=== PATIENT | male | born 1955 | race Caucasian/White ===

== ENCOUNTER 2020-09-20 12:53 | Emergency (ER) | payer MEDICAID ==
[~2020-09-20] VITALS: Ht 203.2 cm; Wt 112.2 kg
[~2020-09-20 12:53] MED LIST: NO HOME MEDS
[2020-09-20] MEDS ORDERED: bacitracin 15gm ointment TP ONE (14:40)
[2020-09-20] MEDS ORDERED: vancomycin/NS 1 GM ADD-VANTAGE 250 ML IV ONE (14:40)
[2020-09-20] MEDS ORDERED: CefTRIAXone 2gm/D5W 50ml BAG 50 ML IV ONE (14:40)
[2020-09-20 15:27] LABS: BASOPHILS # (AUTO) 0.1 X10'3 (0-0.2); BASOPHILS % (AUTO) 1.5 % (0-1); EOSINOPHILS # (AUTO) 0.7 X10'3 (0-0.9); EOSINOPHILS % (AUTO) 7.9 % (0-6); HEMATOCRIT 39.1 % (42.0-52.0); LYMPHOCYTES # (AUTO) 2.2 X10'3 (1.1-4.8); LYMPHOCYTES % (AUTO) 25.7 % (21-51); MEAN CORPUSCULAR HEMOGLOBIN 29.4 PG (27.0-31.0); MEAN CORPUSCULAR HGB CONC 33.2 g/dL (33.0-36.5); MEAN CORPUSCULAR VOLUME 88.5 FL (78-98); MEAN PLATELET VOLUME 8.9 FL (7.4-10.4); MONOCYTES # (AUTO) 1.2 X10'3 (0-0.9); NEUTROPHILS # (AUTO) 4.4 X10'3 (1.8-7.7); NEUTROPHILS % (AUTO) 50.9 % (42-75); PLATELET COUNT 503 X10'3 (140-440); RED BLOOD COUNT 4.42 X10'6 (4.70-6.10); RED CELL DISTRIBUTION WIDTH 14.3 % (11.5-14.5); WHITE BLOOD COUNT 8.6 X10'3 (4.5-11.0)
[2020-09-20 15:41] LABS: ALANINE AMINOTRANSFERASE 27 U/L (12-78); ALBUMIN 3.3 G/DL (3.4-5.0); ALBUMIN/GLOBULIN RATIO 0.8 (1.1-1.5); ALKALINE PHOSPHATASE 96 IU/L (46-116); ANION GAP 6 (8-16); ASPARTATE AMINO TRANSFERASE 15 U/L (10-37); BILIRUBIN,TOTAL 0.2 MG/DL (0.1-1.0); BLOOD UREA NITROGEN 22 MG/DL (7-18); BUN/CREATININE RATIO 15.9 (5.4-32.0); CALCIUM 8.7 MG/DL (8.5-10.1); CHLORIDE 106 MMOL/L (99-107); CREATININE 1.38 MG/DL (0.60-1.10); GLUCOSE 86 MG/DL (70-104); MAGNESIUM 2.1 MG/DL (1.5-2.4); SODIUM 142 MMOL/L (135-145); TOTAL CARBON DIOXIDE 30.4 MMOL/L (24-32); TOTAL PROTEIN 7.4 G/DL (6.4-8.2); eGFR 52 ML/MIN
[2020-09-20 15:48] VITALS: BP 162/110
[2020-09-20] MEDS ORDERED: CEPH-585 PO ×2 (16:48→17:16)
[2020-09-20] MEDS ORDERED: SULF1TAB49 PO ×2 (16:48→17:16)
== END 2020-09-20 18:16 | disposition home or self-care (01) ==
LOC: ER 12:54
DX: L03.031 Cellulitis of right toe (principal); M86.9 Osteomyelitis, unspecified; N28.9 Disorder of kidney and ureter, unspecified; F15.90 Other stimulant use, unspecified, uncomplicated; Z79.2 Long term (current) use of antibiotics; Z79.899 Other long term (current) drug therapy; Z72.89 Other problems related to lifestyle; Z87.81 Personal history of (healed) traumatic fracture
CPT/HCPCS: 36415; 73660; 80053; 83605; 83735; 84145; 85025; 87040; 96365; 96366; 96367; 99284; J0696; J3370; 96368

== ENCOUNTER 2022-07-15 16:11 | Inpatient (IN) | payer MEDICAID ==
[~2022-07-15] VITALS: Ht 188 cm; Wt 104.0 kg
[2022-07-15] MEDS ORDERED: magnesium 2GM in 50ml NS 50 ML IV ONE (16:40)
[2022-07-15] MEDS ORDERED: diltiazem 5mg/ml 5ml inj. IV ONE ×2 (16:40→17:36)
[2022-07-15 17:18] LABS: BASOPHILS # (AUTO) 0.1 X10'3 (0-0.2); EOSINOPHILS # (AUTO) 0.3 X10'3 (0-0.9); EOSINOPHILS % (AUTO) 3.3 % (0-6); HEMATOCRIT 40.1 % (42.0-52.0); HEMOGLOBIN 13.1 g/dl (14.0-17.9); LYMPHOCYTES # (AUTO) 1.9 X10'3 (1.1-4.8); LYMPHOCYTES % (AUTO) 18.7 % (21-51); MEAN CORPUSCULAR HEMOGLOBIN 29.8 PG (27.0-31.0); MEAN CORPUSCULAR HGB CONC 32.6 g/dL (33.0-36.5); MEAN CORPUSCULAR VOLUME 91.4 FL (78-98); MEAN PLATELET VOLUME 9.3 FL (7.4-10.4); MONOCYTES # (AUTO) 1.1 X10'3 (0-0.9); MONOCYTES % (AUTO) 10.5 % (2-12); NEUTROPHILS # (AUTO) 6.7 X10'3 (1.8-7.7); NEUTROPHILS % (AUTO) 66.5 % (42-75); PLATELET COUNT 348 X10'3 (140-440); RED BLOOD COUNT 4.38 X10'6 (4.70-6.10); RED CELL DISTRIBUTION WIDTH 15.2 % (11.5-14.5)
[2022-07-15] MEDS ORDERED: diltiazem 30mg tablet PO ONE (17:35)
[2022-07-15] MEDS ORDERED: furosemide 10 MG/1 ML 10ml inj IV ONE (17:35)
[2022-07-15 17:47] LABS: ALANINE AMINOTRANSFERASE 53 U/L (12-78); ALBUMIN 3.4 G/DL (3.4-5.0); ALBUMIN/GLOBULIN RATIO 0.9 (1.1-1.5); ALKALINE PHOSPHATASE 93 IU/L (46-116); ANION GAP 9 (8-16); ASPARTATE AMINO TRANSFERASE 23 U/L (10-37); BILIRUBIN,TOTAL 0.5 MG/DL (0.1-1.0); BLOOD UREA NITROGEN 25 MG/DL (7-18); BUN/CREATININE RATIO 16.1 (5.4-32.0); CALCIUM 8.8 MG/DL (8.5-10.1); CHLORIDE 107 MMOL/L (99-107); CREATININE 1.55 MG/DL (0.60-1.10); GLUCOSE 112 MG/DL (70-104); MAGNESIUM 1.9 MG/DL (1.5-2.4); POTASSIUM 4.3 MMOL/L (3.5-5.1); SODIUM 141 MMOL/L (135-145); TOTAL CARBON DIOXIDE 24.6 MMOL/L (24-32); eGFR 45 ML/MIN
[2022-07-15] MEDS ORDERED: enoxaparin 100mg/ml syringe SUBCUT ONE (17:55)
[2022-07-15] MEDS ORDERED: nitroGLYCERIN 0.4mg/hour patch TD ONE (17:55)
[2022-07-15] MEDS ORDERED: acetaminophen 325mg tablet PO PRN (18:00)
[2022-07-15] MEDS ORDERED: magnesium hydroxide 30ml (MOM) UD suspension PO PRN (18:00)
[2022-07-15] MEDS ORDERED: potassium Cl 40MEQ/1/2NS 520ml 520 ML IV PRN (18:00)
[2022-07-15] MEDS ORDERED: CefTRIAXone 2gm/D5W 50ml BAG 50 ML IV ONE (18:00)
[2022-07-15] MEDS ORDERED: magnesium Cl slow-release 64mg tablet PO PRN (18:00)
[2022-07-15] MEDS ORDERED: mag hydrox/Alum hydrox/simeth 30ml oral suspension PO PRN (18:00)
[2022-07-15] MEDS ORDERED: ondansetron/PF 4mg/2ml inj IV PRN (18:00)
[2022-07-15] MEDS ORDERED: magnesium 4gm in 100ml NS 100 ML IV PRN (18:00)
[2022-07-15] MEDS ORDERED: PERFLUTREN PROTEIN-A MICROSPHR (Optison) 0.22 MG/ML 3ML VIAL IV ONE (18:00)
[2022-07-15] MEDS ORDERED: potassium Cl 20 mEq SR tablet PO PRN ×2 (18:00)
[2022-07-15] MEDS ORDERED: cloNIDine 0.1 mg tablet PO ONE (18:30)
[2022-07-15 19:18] LABS: URINE AMPHETAMINE SCREEN POSITIVE (Neg); URINE BARBITUATE SCREEN NEGATIVE (Neg); URINE BENZODIAZEPINES SCREEN NEGATIVE (Neg); URINE CANNABINOID SCREEN NEGATIVE (Neg); URINE COCAINE SCREEN NEGATIVE (Neg); URINE METHADONE SCREEN NEGATIVE (Neg); URINE OPIATE SCREEN NEGATIVE (Neg); URINE PHENCYCLIDINE SCREEN NEGATIVE (Neg)
[2022-07-15] MEDS: docusate sod 100mg capsule PO SCH (20:00)
[2022-07-15] MEDS: carVEDilol 3.125mg tablet PO SCH (21:00)
[2022-07-16 07:16] LABS: BASOPHILS # (AUTO) 0.2 X10'3 (0-0.2); BASOPHILS % (AUTO) 1.5 % (0-1); EOSINOPHILS # (AUTO) 0.5 X10'3 (0-0.9); HEMATOCRIT 41.5 % (42.0-52.0); HEMOGLOBIN 13.1 g/dl (14.0-17.9); LYMPHOCYTES # (AUTO) 2.2 X10'3 (1.1-4.8); LYMPHOCYTES % (AUTO) 21.2 % (21-51); MEAN CORPUSCULAR HEMOGLOBIN 29.7 PG (27.0-31.0); MEAN CORPUSCULAR HGB CONC 31.5 g/dL (33.0-36.5); MEAN CORPUSCULAR VOLUME 94.2 FL (78-98); MEAN PLATELET VOLUME 9.1 FL (7.4-10.4); MONOCYTES # (AUTO) 1.2 X10'3 (0-0.9); MONOCYTES % (AUTO) 11.4 % (2-12); NEUTROPHILS # (AUTO) 6.4 X10'3 (1.8-7.7); NEUTROPHILS % (AUTO) 60.9 % (42-75); PLATELET COUNT 307 X10'3 (140-440); RED BLOOD COUNT 4.41 X10'6 (4.70-6.10); RED CELL DISTRIBUTION WIDTH 15.7 % (11.5-14.5); WHITE BLOOD COUNT 10.6 X10'3 (4.5-11.0)
[2022-07-16] MEDS: furosemide 10 MG/1 ML 10ml inj IV SCH (07:33)
[2022-07-16] MEDS: carVEDilol 3.125mg tablet PO SCH (07:34)
[2022-07-16] MEDS: docusate sod 100mg capsule PO SCH ×2 (07:34→19:53)
[2022-07-16] MEDS: lisinopril 10 MG tablet PO SCH (07:34)
[2022-07-16] MEDS ORDERED: enoxaparin 40mg/0.4ml syringe SUBCUT SCH (08:00)
[2022-07-16 08:55] LABS: ALANINE AMINOTRANSFERASE 47 U/L (12-78); ALBUMIN 3.3 G/DL (3.4-5.0); ALBUMIN/GLOBULIN RATIO 0.9 (1.1-1.5); ALKALINE PHOSPHATASE 82 IU/L (46-116); ANION GAP 12 (8-16); ASPARTATE AMINO TRANSFERASE 33 U/L (10-37); BILIRUBIN,TOTAL 0.6 MG/DL (0.1-1.0); BLOOD UREA NITROGEN 25 MG/DL (7-18); BUN/CREATININE RATIO 15.2 (5.4-32.0); CALCIUM 8.8 MG/DL (8.5-10.1); CHLORIDE 106 MMOL/L (99-107); CREATININE 1.65 MG/DL (0.60-1.10); GLUCOSE 92 MG/DL (70-104); MAGNESIUM 2.2 MG/DL (1.5-2.4); POTASSIUM 4.1 MMOL/L (3.5-5.1); SODIUM 140 MMOL/L (135-145); TOTAL CARBON DIOXIDE 21.6 MMOL/L (24-32); TOTAL PROTEIN 6.9 G/DL (6.4-8.2); eGFR 42 ML/MIN
--- NOTE | 2022-07-16 09:47 | NUR ---
Received order for consult. Patient Covid + I will see patient when admitted to the floor and off Isolation.
--- NOTE | 2022-07-16 12:16 | NUR ---
pt given lunch tray. no complaints at this time.
[2022-07-16] MEDS: metoprolol tartrate 25mg tablet PO SCH ×2 (14:16→19:53)
[2022-07-16] MEDS: heparin, porcine 5000 units/ml vial SQ SCH ×2 (16:06→23:37)
[2022-07-16 18:45] VITALS: BP 124/95
[2022-07-16 22:00] VITALS: BP 113/75
[2022-07-17 02:00] VITALS: BP 112/85
[2022-07-17 06:00] VITALS: BP 117/75
[2022-07-17 07:17] LABS: BASOPHILS # (AUTO) 0.2 X10'3 (0-0.2); BASOPHILS % (AUTO) 1.5 % (0-1); EOSINOPHILS # (AUTO) 0.3 X10'3 (0-0.9); EOSINOPHILS % (AUTO) 2.9 % (0-6); HEMATOCRIT 39.1 % (42.0-52.0); HEMOGLOBIN 12.5 g/dl (14.0-17.9); LYMPHOCYTES # (AUTO) 2.8 X10'3 (1.1-4.8); LYMPHOCYTES % (AUTO) 24.4 % (21-51); MEAN CORPUSCULAR HEMOGLOBIN 29.1 PG (27.0-31.0); MEAN CORPUSCULAR VOLUME 91.1 FL (78-98); MEAN PLATELET VOLUME 10.2 FL (7.4-10.4); MONOCYTES # (AUTO) 1.2 X10'3 (0-0.9); MONOCYTES % (AUTO) 10.6 % (2-12); NEUTROPHILS % (AUTO) 60.6 % (42-75); PLATELET COUNT 343 X10'3 (140-440); RED BLOOD COUNT 4.29 X10'6 (4.70-6.10); RED CELL DISTRIBUTION WIDTH 15.1 % (11.5-14.5); WHITE BLOOD COUNT 11.6 X10'3 (4.5-11.0)
[2022-07-17] MEDS: docusate sod 100mg capsule PO SCH ×2 (08:00→19:46)
[2022-07-17 08:27] LABS: ALANINE AMINOTRANSFERASE 41 U/L (12-78); ALBUMIN 3.4 G/DL (3.4-5.0); ALKALINE PHOSPHATASE 80 IU/L (46-116); ANION GAP 10 (8-16); ASPARTATE AMINO TRANSFERASE 32 U/L (10-37); BILIRUBIN,TOTAL 0.6 MG/DL (0.1-1.0); BLOOD UREA NITROGEN 31 MG/DL (7-18); BUN/CREATININE RATIO 19.1 (5.4-32.0); CALCIUM 8.7 MG/DL (8.5-10.1); CHLORIDE 105 MMOL/L (99-107); CHOLESTEROL 140 MG/DL (0-200); CREATININE 1.62 MG/DL (0.60-1.10); GLUCOSE 95 MG/DL (70-104); HDL CHOLESTEROL 35 MG/DL (35-60); LDL CHOLESTEROL 98 MG/DL (50-100); MAGNESIUM 2.2 MG/DL (1.5-2.4); POTASSIUM 4.1 MMOL/L (3.5-5.1); SODIUM 139 MMOL/L (135-145); TOTAL PROTEIN 6.8 G/DL (6.4-8.2); TRIGLYCERIDES 64 MG/DL (20-135); eGFR 43 ML/MIN
[2022-07-17] MEDS: metoprolol tartrate 25mg tablet PO SCH ×2 (08:34→19:47)
[2022-07-17] MEDS: apixaban 5mg tablet PO SCH ×2 (08:34→19:47)
[2022-07-17] MEDS: lisinopril 10 MG tablet PO SCH (08:34)
[2022-07-17] MEDS: spironolactone 25 MG tablet PO SCH (08:35)
[2022-07-17] MEDS: furosemide 10 MG/1 ML 10ml inj IV SCH (08:35)
[2022-07-17 09:15] VITALS: BP 117/83
[2022-07-17 15:37] VITALS: BP 130/99
[2022-07-17 18:00] VITALS: BP 144/78
[2022-07-17 23:28] VITALS: BP 117/85
[2022-07-17] MEDS ORDERED: metoprolol tartrate 12.5mg (1/2 tablet) PO ONE (23:55)
--- NOTE | 2022-07-18 00:04 | NUR ---
MD Gilliam notified by telephone that patient has a heart rate sustained in the 120's and was asymptomatic. Blood pressure was within normal limits. MD notified that last night patient had 2-4 second pauses. MD ordered a one time dose of PO 12.5mg metoprolol. RN will continue to monitor.
[2022-07-18 02:37] VITALS: BP 99/64
[2022-07-18 06:26] LABS: BASOPHILS # (AUTO) 0.1 X10'3 (0-0.2); EOSINOPHILS # (AUTO) 0.3 X10'3 (0-0.9); LYMPHOCYTES # (AUTO) 2.8 X10'3 (1.1-4.8); PLATELET COUNT 340 X10'3 (140-440)
[2022-07-18 06:28] LABS: BASOPHILS % (AUTO) 1.2 % (0-1); HEMATOCRIT 38.5 % (42.0-52.0); HEMOGLOBIN 12.8 g/dl (14.0-17.9); LYMPHOCYTES % (AUTO) 25.7 % (21-51); MEAN CORPUSCULAR HGB CONC 33.2 g/dL (33.0-36.5); MEAN CORPUSCULAR VOLUME 90.4 FL (78-98); MEAN PLATELET VOLUME 9.5 FL (7.4-10.4); MONOCYTES # (AUTO) 1.3 X10'3 (0-0.9); MONOCYTES % (AUTO) 12.3 % (2-12); NEUTROPHILS # (AUTO) 6.2 X10'3 (1.8-7.7); NEUTROPHILS % (AUTO) 57.8 % (42-75); RED BLOOD COUNT 4.26 X10'6 (4.70-6.10); RED CELL DISTRIBUTION WIDTH 14.6 % (11.5-14.5); WHITE BLOOD COUNT 10.7 X10'3 (4.5-11.0)
[2022-07-18 06:33] LABS: ALANINE AMINOTRANSFERASE 46 U/L (12-78); ALBUMIN 3.3 G/DL (3.4-5.0); ALKALINE PHOSPHATASE 79 IU/L (46-116); ANION GAP 9 (8-16); ASPARTATE AMINO TRANSFERASE 29 U/L (10-37); BILIRUBIN,TOTAL 0.5 MG/DL (0.1-1.0); BLOOD UREA NITROGEN 34 MG/DL (7-18); BUN/CREATININE RATIO 19.9 (5.4-32.0); CALCIUM 8.6 MG/DL (8.5-10.1); CHLORIDE 104 MMOL/L (99-107); CREATININE 1.71 MG/DL (0.60-1.10); GLUCOSE 88 MG/DL (70-104); POTASSIUM 4.1 MMOL/L (3.5-5.1); SODIUM 139 MMOL/L (135-145); TOTAL CARBON DIOXIDE 26.5 MMOL/L (24-32); TOTAL PROTEIN 6.6 G/DL (6.4-8.2); eGFR 40 ML/MIN
--- NOTE | 2022-07-18 07:07 | NUR ---
paged Dr. Walters re: Pt had 5.4 second pause. pt has been having up to 3 second pauses with HR dropping to the 30s, but this was the longest pause
[2022-07-18 07:15] VITALS: BP 132/97
[2022-07-18] MEDS: lisinopril 10 MG tablet PO SCH (07:53)
[2022-07-18] MEDS: furosemide 10 MG/1 ML 10ml inj IV SCH (07:53)
[2022-07-18] MEDS: apixaban 5mg tablet PO SCH ×2 (07:53→19:16)
[2022-07-18] MEDS: docusate sod 100mg capsule PO SCH ×2 (07:53→19:16)
[2022-07-18] MEDS: aspirin 81mg, enteric-coated 1 TAB TABLET.DR PO SCH (07:53)
[2022-07-18] MEDS: atorvastatin 20mg tablet PO SCH (07:53)
[2022-07-18] MEDS: spironolactone 25 MG tablet PO SCH (07:54)
[2022-07-18] MEDS ORDERED: metoprolol succinate 25mg (24-HOUR) SR. Tablet PO SCH (08:00)
[2022-07-18 10:15] VITALS: BP 138/97
[2022-07-18] MEDS: amiodarone 200mg tablet PO SCH ×2 (10:15→19:16)
[2022-07-18 13:15] VITALS: BP 129/92
[2022-07-18 18:00] VITALS: BP 127/86
[2022-07-18 21:47] VITALS: BP 139/81
[2022-07-18] MEDS ORDERED: diltiazem 30mg tablet PO ONE (22:55)
--- NOTE | 2022-07-18 22:57 | NUR ---
MD Gilliam notified by telephone that patient has a heart rate sustained in the 120's to 130's. Patient is asymptomatic and has a BP of 139/71. ordered a one time dose of PO 30mg Diltiazem.
[2022-07-19 02:10] VITALS: BP 107/73
[2022-07-19 06:00] VITALS: BP 138/83
[2022-07-19 07:54] LABS: BASOPHILS # (AUTO) 0.2 X10'3 (0-0.2); BASOPHILS % (AUTO) 1.8 % (0-1); EOSINOPHILS # (AUTO) 0.4 X10'3 (0-0.9); EOSINOPHILS % (AUTO) 3.9 % (0-6); LYMPHOCYTES # (AUTO) 2.8 X10'3 (1.1-4.8); LYMPHOCYTES % (AUTO) 25.5 % (21-51); MEAN CORPUSCULAR HEMOGLOBIN 29.5 PG (27.0-31.0); MEAN CORPUSCULAR HGB CONC 32.6 g/dL (33.0-36.5); MEAN CORPUSCULAR VOLUME 90.5 FL (78-98); MEAN PLATELET VOLUME 9.5 FL (7.4-10.4); MONOCYTES # (AUTO) 1.3 X10'3 (0-0.9); MONOCYTES % (AUTO) 11.8 % (2-12); NEUTROPHILS # (AUTO) 6.3 X10'3 (1.8-7.7); PLATELET COUNT 359 X10'3 (140-440); RED BLOOD COUNT 4.42 X10'6 (4.70-6.10); RED CELL DISTRIBUTION WIDTH 14.8 % (11.5-14.5)
[2022-07-19] MEDS: docusate sod 100mg capsule PO SCH ×2 (08:00→19:29)
[2022-07-19] MEDS: lisinopril 10 MG tablet PO SCH (08:33)
[2022-07-19] MEDS: apixaban 5mg tablet PO SCH ×2 (08:33→19:29)
[2022-07-19] MEDS: aspirin 81mg, enteric-coated 1 TAB TABLET.DR PO SCH (08:33)
[2022-07-19] MEDS: amiodarone 200mg tablet PO SCH ×2 (08:33→19:29)
[2022-07-19] MEDS: atorvastatin 20mg tablet PO SCH (08:33)
[2022-07-19] MEDS: furosemide 10 MG/1 ML 10ml inj IV SCH (08:33)
[2022-07-19 08:35] LABS: ALANINE AMINOTRANSFERASE 44 U/L (12-78); ALBUMIN 3.2 G/DL (3.4-5.0); ALKALINE PHOSPHATASE 78 IU/L (46-116); ANION GAP 9 (8-16); ASPARTATE AMINO TRANSFERASE 27 U/L (10-37); BILIRUBIN,TOTAL 0.5 MG/DL (0.1-1.0); BLOOD UREA NITROGEN 37 MG/DL (7-18); BUN/CREATININE RATIO 21.6 (5.4-32.0); CALCIUM 8.4 MG/DL (8.5-10.1); CHLORIDE 104 MMOL/L (99-107); CREATININE 1.71 MG/DL (0.60-1.10); GLUCOSE 106 MG/DL (70-104); MAGNESIUM 2.1 MG/DL (1.5-2.4); POTASSIUM 4.4 MMOL/L (3.5-5.1); SODIUM 139 MMOL/L (135-145); TOTAL CARBON DIOXIDE 25.7 MMOL/L (24-32); TOTAL PROTEIN 6.5 G/DL (6.4-8.2); eGFR 40 ML/MIN
[2022-07-19] MEDS: spironolactone 25 MG tablet PO SCH (08:35)
[2022-07-19 09:00] VITALS: BP 106/61
[2022-07-19 12:46] VITALS: BP 154/79
[2022-07-19 18:00] VITALS: BP 147/79
[2022-07-19 23:39] VITALS: BP 138/84
[2022-07-20 03:23] VITALS: BP 134/71
[2022-07-20 06:00] VITALS: BP 151/93
--- NOTE | 2022-07-20 06:41 | NUR ---
Patient in room PCU 3022. I have received report from Nate LOVELACE and had the opportunity to ask questions and assume patient care.
[2022-07-20 07:16] LABS: BASOPHILS # (AUTO) 0.2 X10'3 (0-0.2); BASOPHILS % (AUTO) 1.9 % (0-1); EOSINOPHILS # (AUTO) 0.6 X10'3 (0-0.9); EOSINOPHILS % (AUTO) 5.5 % (0-6); HEMATOCRIT 41.2 % (42.0-52.0); HEMOGLOBIN 13.3 g/dl (14.0-17.9); LYMPHOCYTES # (AUTO) 2.5 X10'3 (1.1-4.8); LYMPHOCYTES % (AUTO) 24.9 % (21-51); MEAN CORPUSCULAR HEMOGLOBIN 29.4 PG (27.0-31.0); MEAN CORPUSCULAR HGB CONC 32.3 g/dL (33.0-36.5); MEAN PLATELET VOLUME 9.9 FL (7.4-10.4); MONOCYTES # (AUTO) 1.4 X10'3 (0-0.9); MONOCYTES % (AUTO) 13.5 % (2-12); NEUTROPHILS # (AUTO) 5.6 X10'3 (1.8-7.7); NEUTROPHILS % (AUTO) 54.2 % (42-75); PLATELET COUNT 393 X10'3 (140-440); RED BLOOD COUNT 4.53 X10'6 (4.70-6.10); RED CELL DISTRIBUTION WIDTH 14.9 % (11.5-14.5); WHITE BLOOD COUNT 10.2 X10'3 (4.5-11.0)
[2022-07-20 07:27] LABS: ALANINE AMINOTRANSFERASE 40 U/L (12-78); ALBUMIN 3.2 G/DL (3.4-5.0); ALBUMIN/GLOBULIN RATIO 0.9 (1.1-1.5); ALKALINE PHOSPHATASE 78 IU/L (46-116); ANION GAP 10 (8-16); ASPARTATE AMINO TRANSFERASE 26 U/L (10-37); BILIRUBIN,TOTAL 0.4 MG/DL (0.1-1.0); BLOOD UREA NITROGEN 35 MG/DL (7-18); BUN/CREATININE RATIO 21.5 (5.4-32.0); CALCIUM 8.6 MG/DL (8.5-10.1); CHLORIDE 103 MMOL/L (99-107); CREATININE 1.63 MG/DL (0.60-1.10); GLUCOSE 108 MG/DL (70-104); POTASSIUM 4.2 MMOL/L (3.5-5.1); SODIUM 138 MMOL/L (135-145); TOTAL CARBON DIOXIDE 25.4 MMOL/L (24-32); TOTAL PROTEIN 6.6 G/DL (6.4-8.2); eGFR 43 ML/MIN
[2022-07-20] MEDS: apixaban 5mg tablet PO SCH (08:21)
[2022-07-20] MEDS: lisinopril 10 MG tablet PO SCH (08:21)
[2022-07-20] MEDS: aspirin 81mg, enteric-coated 1 TAB TABLET.DR PO SCH (08:22)
[2022-07-20] MEDS: spironolactone 25 MG tablet PO SCH (08:22)
[2022-07-20] MEDS: amiodarone 200mg tablet PO SCH (08:22)
[2022-07-20] MEDS: atorvastatin 20mg tablet PO SCH (08:22)
[2022-07-20] MEDS: docusate sod 100mg capsule PO SCH (08:22)
[2022-07-20] MEDS ORDERED: furosemide 40mg/4ml inj IV SCH (08:53)
--- NOTE | 2022-07-20 10:11 | NUR ---
Initial: Pt admit for new dx heart failure with LVEF 15-20%, type II SC, and COVID-19. Pt currently on a 2 g Na restricted diet and eating well, documented with 100% PO intake since admit. D/w dietary to send double protein with meals for satiety and to further assist with meeting estimated nutrient needs. Noted patient's lipid panel is WNL. LBM 07/19. Will continue to follow and monitor need for further nutrition intervention. Recommendations: 1) Continue 2 g Na restricted diet (lipid panel WNL) 2) Double eggs WB, double meat BIDLD 3) Routine bowel care 4) Daily scaled weights per rx Addendum: 07/20/22 at [address] Amended: Links added.
[2022-07-20 10:42] VITALS: BP 136/86
[2022-07-20] MEDS ORDERED: SPIR25TA PO (10:49)
[2022-07-20] MEDS ORDERED: AMIO200T67 PO (10:49)
[2022-07-20] MEDS ORDERED: APIX5TAB3 PO (10:49)
[2022-07-20] MEDS ORDERED: ATOR20TA66 PO (10:49)
[2022-07-20] MEDS ORDERED: LISI10TA27 PO (10:49)
[2022-07-20] MEDS ORDERED: ASPI-1071 PO (10:49)
[2022-07-20] MEDS ORDERED: FURO40TA4 PO (10:49)
--- NOTE | 2022-07-20 14:39 | NUR ---
PIV dc with canula intact, no s/sx of infiltration or infection, pt has no complaint of pain or discomfort. Pt escorted to bus stop for transportation home by staff. Pt verbally expressed understanding of all discharge instructions and education provided.
== END 2022-07-20 14:38 | disposition home or self-care (01) | DRG 194 ==
LOC: ER 16:12 → UNDOADMIN 17:59 → ED HOLD 17:59 → PCU 3S 07-16 18:36
PROVIDERS: ADMIT Family Medicine; ATTEND Family Medicine
DX: I13.0 Hypertensive heart and chronic kidney disease with heart failure and stage 1 through stage 4 chronic kidney disease, or unspecified chronic kidney disease (principal); U07.1 COVID-19; I21.A1 Myocardial infarction type 2; N17.9 Acute kidney failure, unspecified; I48.19 Other persistent atrial fibrillation; I50.23 Acute on chronic systolic (congestive) heart failure; I42.7 Cardiomyopathy due to drug and external agent; D64.9 Anemia, unspecified; F15.90 Other stimulant use, unspecified, uncomplicated; R00.1 Bradycardia, unspecified; R00.0 Tachycardia, unspecified; R10.84 Generalized abdominal pain; R19.00 Intra-abdominal and pelvic swelling, mass and lump, unspecified site; R79.89 Other specified abnormal findings of blood chemistry; F17.210 Nicotine dependence, cigarettes, uncomplicated; I48.92 Unspecified atrial flutter; N18.30 Chronic kidney disease, stage 3 unspecified; Z79.01 Long term (current) use of anticoagulants; Z79.82 Long term (current) use of aspirin; Z79.899 Other long term (current) drug therapy; Z90.81 Acquired absence of spleen; Z81.1 Family history of alcohol abuse and dependence; Z28.310 Unvaccinated for COVID-19
CPT/HCPCS: 36415; 71045; 80053; 80061; 80305; 83605; 83735; 83880; 84145; 84443; 84484; 85025; 87040; 87502; 87503; 87635; 93005; 93306; 99285; C9803; G0378; J0696; J1644; J1650; J1940; J3475; J3490

== ENCOUNTER 2022-08-27 10:14 | Inpatient (IN) | payer MEDICAID ==
[~2022-08-27] VITALS: Ht 203.2 cm; Wt 93.4 kg
[~2022-08-27 10:14] MED LIST changes: +AMIO200T67 PO; +APIX5TAB3 PO; +ASPI-1071 PO; +ATOR20TA66 PO; +LISI10TA27 PO; -NO HOME MEDS; +SPIR25TA PO
[2022-08-27 11:29] LABS: BASOPHILS # (AUTO) 0.1 X10'3 (0-0.2); BASOPHILS % (AUTO) 1.2 % (0-1); EOSINOPHILS # (AUTO) 0.3 X10'3 (0-0.9); EOSINOPHILS % (AUTO) 3.5 % (0-6); HEMATOCRIT 37.2 % (42.0-52.0); HEMOGLOBIN 12.1 g/dl (14.0-17.9); LYMPHOCYTES # (AUTO) 1.7 X10'3 (1.1-4.8); LYMPHOCYTES % (AUTO) 18.1 % (21-51); MEAN CORPUSCULAR HGB CONC 32.4 g/dL (33.0-36.5); MEAN CORPUSCULAR VOLUME 89.5 FL (78-98); MEAN PLATELET VOLUME 9.2 FL (7.4-10.4); MONOCYTES # (AUTO) 1.2 X10'3 (0-0.9); MONOCYTES % (AUTO) 12.4 % (2-12); NEUTROPHILS # (AUTO) 6.2 X10'3 (1.8-7.7); NEUTROPHILS % (AUTO) 64.8 % (42-75); PLATELET COUNT 289 X10'3 (140-440); RED BLOOD COUNT 4.16 X10'6 (4.70-6.10); RED CELL DISTRIBUTION WIDTH 14.8 % (11.5-14.5); WHITE BLOOD COUNT 9.6 X10'3 (4.5-11.0)
[2022-08-27 11:55] LABS: ALANINE AMINOTRANSFERASE 87 U/L (12-78); ALBUMIN 3.3 G/DL (3.4-5.0); ALBUMIN/GLOBULIN RATIO 0.9 (1.1-1.5); ALKALINE PHOSPHATASE 115 IU/L (46-116); ANION GAP 9 (8-16); ASPARTATE AMINO TRANSFERASE 50 U/L (10-37); BILIRUBIN,TOTAL 0.5 MG/DL (0.1-1.0); BLOOD UREA NITROGEN 32 MG/DL (7-18); BUN/CREATININE RATIO 18.2 (5.4-32.0); CALCIUM 8.6 MG/DL (8.5-10.1); CHLORIDE 105 MMOL/L (99-107); CREATININE 1.76 MG/DL (0.60-1.10); GLUCOSE 109 MG/DL (70-104); POTASSIUM 4.2 MMOL/L (3.5-5.1); SODIUM 138 MMOL/L (135-145); TOTAL CARBON DIOXIDE 23.7 MMOL/L (24-32); TOTAL PROTEIN 6.9 G/DL (6.4-8.2); eGFR 39 ML/MIN
[2022-08-27] MEDS ORDERED: apixaban 5mg tablet PO SCH (12:30)
[2022-08-27] MEDS ORDERED: lisinopril 10 MG tablet PO ONE (12:30)
[2022-08-27] MEDS ORDERED: amiodarone 200mg tablet PO ONE (12:30)
[2022-08-27] MEDS ORDERED: aspirin 81mg, enteric-coated 1 TAB TABLET.DR PO ONE (12:30)
[2022-08-27] MEDS ORDERED: furosemide 10 MG/1 ML 10ml inj IV ONE (12:30)
[2022-08-27] MEDS ORDERED: amiodarone 50MG/ML inj IV ONE (15:10)
[2022-08-27] MEDS ORDERED: amiodarone 150mg/dext, iso-os 100 ML IV ONE (15:15)
[2022-08-27] MEDS ORDERED: amiodarone 50MG/ML inj IV STA (15:40)
[2022-08-27 16:06] LABS: ETHANOL < 0.010 GM/DL (0.0-0.010)
[2022-08-27] MEDS ORDERED: ondansetron/PF 4mg/2ml inj IV PRN (16:15)
[2022-08-27] MEDS ORDERED: acetaminophen 325mg tablet PO PRN ×2 (16:15)
[2022-08-27] MEDS ORDERED: magnesium 4gm in 100ml NS 100 ML IV PRN (16:15)
[2022-08-27] MEDS ORDERED: potassium Cl 20 mEq SR tablet PO PRN ×2 (16:15)
[2022-08-27] MEDS ORDERED: morphine 2 MG/ML inj. syringe IV PRN (16:15)
[2022-08-27] MEDS ORDERED: potassium Cl 40MEQ/1/2NS 520ml 520 ML IV PRN (16:15)
[2022-08-27] MEDS ORDERED: HYDROcodone/acetaminophen 5mg/325mg tablet PO PRN (16:15)
[2022-08-27] MEDS ORDERED: magnesium Cl slow-release 64mg tablet PO PRN (16:15)
[2022-08-27 16:32] LABS: URINE AMPHETAMINE SCREEN NEGATIVE (Neg); URINE BARBITUATE SCREEN NEGATIVE (Neg); URINE BENZODIAZEPINES SCREEN NEGATIVE (Neg); URINE CANNABINOID SCREEN NEGATIVE (Neg); URINE COCAINE SCREEN NEGATIVE (Neg); URINE METHADONE SCREEN NEGATIVE (Neg); URINE OPIATE SCREEN NEGATIVE (Neg); URINE PHENCYCLIDINE SCREEN NEGATIVE (Neg)
[2022-08-27] MEDS ORDERED: NO HOME MEDS (16:42)
--- NOTE | 2022-08-27 18:00 | NUR ---
Dr. Koo at bedside, patient aflutter rate 120's ,Dr. koo to order cardiac drip.
--- NOTE | 2022-08-27 19:13 | NUR ---
food tray provided
[2022-08-27] MEDS: amiodarone 200mg tablet PO SCH (20:10)
[2022-08-27] MEDS: apixaban 5mg tablet PO SCH (20:10)
[2022-08-27] MEDS ORDERED: temazepam 15mg capsule PO PRN (21:00)
--- NOTE | 2022-08-27 21:47 | NUR ---
report called to floor nurse pt tx to room 3012w by tech
[2022-08-27 22:12] VITALS: BP 149/93
[2022-08-28 06:36] LABS: BASOPHILS # (AUTO) 0.2 X10'3 (0-0.2); BASOPHILS % (AUTO) 1.6 % (0-1); EOSINOPHILS # (AUTO) 0.6 X10'3 (0-0.9); EOSINOPHILS % (AUTO) 5.6 % (0-6); HEMATOCRIT 36.8 % (42.0-52.0); LYMPHOCYTES # (AUTO) 2.2 X10'3 (1.1-4.8); LYMPHOCYTES % (AUTO) 20.7 % (21-51); MEAN CORPUSCULAR HEMOGLOBIN 29.1 PG (27.0-31.0); MEAN CORPUSCULAR HGB CONC 32.5 g/dL (33.0-36.5); MEAN CORPUSCULAR VOLUME 89.5 FL (78-98); MEAN PLATELET VOLUME 9.4 FL (7.4-10.4); MONOCYTES # (AUTO) 1.4 X10'3 (0-0.9); NEUTROPHILS # (AUTO) 6.2 X10'3 (1.8-7.7); NEUTROPHILS % (AUTO) 59.1 % (42-75); PLATELET COUNT 304 X10'3 (140-440); RED BLOOD COUNT 4.12 X10'6 (4.70-6.10); RED CELL DISTRIBUTION WIDTH 15.1 % (11.5-14.5); WHITE BLOOD COUNT 10.5 X10'3 (4.5-11.0)
[2022-08-28 07:00] VITALS: BP 138/94
[2022-08-28 07:04] LABS: ALANINE AMINOTRANSFERASE 86 U/L (12-78); ALBUMIN 3.2 G/DL (3.4-5.0); ALBUMIN/GLOBULIN RATIO 0.9 (1.1-1.5); ALKALINE PHOSPHATASE 105 IU/L (46-116); ANION GAP 9 (8-16); ASPARTATE AMINO TRANSFERASE 52 U/L (10-37); BILIRUBIN,TOTAL 0.5 MG/DL (0.1-1.0); BLOOD UREA NITROGEN 31 MG/DL (7-18); BUN/CREATININE RATIO 19.3 (5.4-32.0); CALCIUM 8.5 MG/DL (8.5-10.1); CHLORIDE 106 MMOL/L (99-107); CREATININE 1.61 MG/DL (0.60-1.10); GLUCOSE 114 MG/DL (70-104); POTASSIUM 4.1 MMOL/L (3.5-5.1); SODIUM 140 MMOL/L (135-145); TOTAL CARBON DIOXIDE 25.1 MMOL/L (24-32); TOTAL PROTEIN 6.6 G/DL (6.4-8.2); eGFR 43 ML/MIN
[2022-08-28] MEDS: amiodarone 200mg tablet PO SCH ×2 (09:12→20:24)
[2022-08-28] MEDS: atorvastatin 20mg tablet PO SCH (09:12)
[2022-08-28] MEDS: spironolactone 25 MG tablet PO SCH (09:13)
[2022-08-28] MEDS: aspirin 81mg, enteric-coated 1 TAB TABLET.DR PO SCH (09:13)
[2022-08-28] MEDS: apixaban 5mg tablet PO SCH ×2 (09:13→20:24)
[2022-08-28] MEDS: lisinopril 10 MG tablet PO SCH (09:13)
[2022-08-28] MEDS ORDERED: FLU VACC QS2022-23(6MOS UP)/PF 60 MCG/0.5 ML SYRINGE IMVAC ONE (10:00)
[2022-08-28 11:00] VITALS: BP 138/90
[2022-08-28] MEDS ORDERED: ondansetron 4mg rapidly disintigrating tab PO PRN (18:29)
[2022-08-28 22:00] VITALS: BP 148/100
[2022-08-29 02:00] VITALS: BP 138/99
[2022-08-29 06:00] VITALS: BP 142/104
[2022-08-29 06:43] LABS: BASOPHILS # (AUTO) 0.1 X10'3 (0-0.2); BASOPHILS % (AUTO) 1.3 % (0-1); EOSINOPHILS # (AUTO) 0.5 X10'3 (0-0.9); EOSINOPHILS % (AUTO) 4.2 % (0-6); HEMOGLOBIN 11.7 g/dl (14.0-17.9); LYMPHOCYTES # (AUTO) 1.8 X10'3 (1.1-4.8); LYMPHOCYTES % (AUTO) 16.8 % (21-51); MEAN CORPUSCULAR HEMOGLOBIN 29.1 PG (27.0-31.0); MEAN CORPUSCULAR HGB CONC 32.5 g/dL (33.0-36.5); MEAN CORPUSCULAR VOLUME 89.6 FL (78-98); MEAN PLATELET VOLUME 9.4 FL (7.4-10.4); MONOCYTES # (AUTO) 1.2 X10'3 (0-0.9); MONOCYTES % (AUTO) 11.3 % (2-12); NEUTROPHILS # (AUTO) 7.2 X10'3 (1.8-7.7); NEUTROPHILS % (AUTO) 66.4 % (42-75); PLATELET COUNT 325 X10'3 (140-440); RED BLOOD COUNT 4.02 X10'6 (4.70-6.10); RED CELL DISTRIBUTION WIDTH 14.7 % (11.5-14.5); WHITE BLOOD COUNT 10.9 X10'3 (4.5-11.0)
[2022-08-29 07:30] LABS: ALANINE AMINOTRANSFERASE 85 U/L (12-78); ALBUMIN 3.2 G/DL (3.4-5.0); ALBUMIN/GLOBULIN RATIO 0.9 (1.1-1.5); ALKALINE PHOSPHATASE 96 IU/L (46-116); ANION GAP 8 (8-16); ASPARTATE AMINO TRANSFERASE 44 U/L (10-37); BILIRUBIN,TOTAL 0.6 MG/DL (0.1-1.0); BLOOD UREA NITROGEN 30 MG/DL (7-18); BUN/CREATININE RATIO 19.1 (5.4-32.0); CALCIUM 8.8 MG/DL (8.5-10.1); CHLORIDE 105 MMOL/L (99-107); CREATININE 1.57 MG/DL (0.60-1.10); GLUCOSE 105 MG/DL (70-104); POTASSIUM 4.1 MMOL/L (3.5-5.1); SODIUM 137 MMOL/L (135-145); TOTAL CARBON DIOXIDE 24.4 MMOL/L (24-32); TOTAL PROTEIN 6.6 G/DL (6.4-8.2); eGFR 45 ML/MIN
[2022-08-29] MEDS: lisinopril 10 MG tablet PO SCH (07:59)
[2022-08-29] MEDS: atorvastatin 20mg tablet PO SCH (07:59)
[2022-08-29] MEDS: amiodarone 200mg tablet PO SCH ×2 (07:59→19:36)
[2022-08-29] MEDS: apixaban 5mg tablet PO SCH ×2 (07:59→19:36)
[2022-08-29] MEDS: aspirin 81mg, enteric-coated 1 TAB TABLET.DR PO SCH (08:00)
[2022-08-29] MEDS: spironolactone 25 MG tablet PO SCH (08:00)
[2022-08-29] MEDS ORDERED: furosemide 40mg/4ml inj IV ONE (11:40)
[2022-08-29 12:00] VITALS: BP 137/104
[2022-08-29 16:00] VITALS: BP 134/100
[2022-08-29 18:00] VITALS: BP 145/103
--- NOTE | 2022-08-29 18:17 | NUR ---
Patient in room PCU 3012. I have received report from Norma QUEZADA and had the opportunity to ask questions and assume patient care.
[2022-08-29] MEDS ORDERED: sacubitril/valsartan 24mg-26mg tablet PO SCH (20:00)
[2022-08-29] MEDS: furosemide 40mg/4ml inj IV SCH (20:39)
[2022-08-29 22:00] VITALS: BP_SYST 154; BP_SYST 164; BP_DIAS 100; BP_DIAS 110
--- NOTE | 2022-08-29 23:33 | NUR ---
spoke w/ dr koo about pt [address] advised to order hydralazine but to call pharmacy to confirm dose. Followed up w/ page after speaking w/ pharmacy Page Sent PAGER ID: [phone] MESSAGE: [id number]: Jacky Armando: pharmacy advised IV dose of hydralazine is 20-40 mg IV for severe HTN or 25mg TID titrated up. How would you like the order put in? Dr. Koo confirmed hydralazine 25 mg TID PRN for systolic over 160.
[2022-08-29] MEDS ORDERED: hydrALAZINE 25 MG tablet PO PRN (23:55)
[2022-08-30] VITALS (7 sets, daily range): BP systolic 114–150; BP diastolic 80–104
--- NOTE | 2022-08-30 06:09 | NUR ---
Problems reprioritized. Patient report given, questions answered & plan of care reviewed with Antonio QUEZADA.
[2022-08-30 07:05] LABS: BASOPHILS # (AUTO) 0.2 X10'3 (0-0.2); BASOPHILS % (AUTO) 1.5 % (0-1); EOSINOPHILS # (AUTO) 0.5 X10'3 (0-0.9); EOSINOPHILS % (AUTO) 4.3 % (0-6); HEMATOCRIT 38.2 % (42.0-52.0); HEMOGLOBIN 12.4 g/dl (14.0-17.9); LYMPHOCYTES % (AUTO) 18.4 % (21-51); MEAN CORPUSCULAR HEMOGLOBIN 29.1 PG (27.0-31.0); MEAN CORPUSCULAR HGB CONC 32.5 g/dL (33.0-36.5); MEAN CORPUSCULAR VOLUME 89.4 FL (78-98); MEAN PLATELET VOLUME 9.7 FL (7.4-10.4); MONOCYTES # (AUTO) 1.4 X10'3 (0-0.9); MONOCYTES % (AUTO) 12.4 % (2-12); NEUTROPHILS # (AUTO) 7.1 X10'3 (1.8-7.7); NEUTROPHILS % (AUTO) 63.4 % (42-75); PLATELET COUNT 358 X10'3 (140-440); RED BLOOD COUNT 4.27 X10'6 (4.70-6.10); RED CELL DISTRIBUTION WIDTH 14.5 % (11.5-14.5); WHITE BLOOD COUNT 11.1 X10'3 (4.5-11.0)
[2022-08-30] MEDS: furosemide 40mg/4ml inj IV SCH ×2 (07:47→21:11)
[2022-08-30 07:50] LABS: ALANINE AMINOTRANSFERASE 81 U/L (12-78); ALBUMIN 3.4 G/DL (3.4-5.0); ALBUMIN/GLOBULIN RATIO 0.9 (1.1-1.5); ALKALINE PHOSPHATASE 111 IU/L (46-116); ANION GAP 9 (8-16); ASPARTATE AMINO TRANSFERASE 30 U/L (10-37); BILIRUBIN,TOTAL 0.4 MG/DL (0.1-1.0); BLOOD UREA NITROGEN 35 MG/DL (7-18); BUN/CREATININE RATIO 20.1 (5.4-32.0); CHLORIDE 103 MMOL/L (99-107); CHOL/HDL RATIO 3.9 (0.00-4.99); CHOLESTEROL 150 MG/DL (0-200); CREATININE 1.74 MG/DL (0.60-1.10); GLUCOSE 109 MG/DL (70-104); HDL CHOLESTEROL 38 MG/DL (35-60); LDL CHOLESTEROL 102 MG/DL (50-100); POTASSIUM 3.9 MMOL/L (3.5-5.1); SODIUM 137 MMOL/L (135-145); TOTAL PROTEIN 7.2 G/DL (6.4-8.2); TRIGLYCERIDES 62 MG/DL (20-135); eGFR 40 ML/MIN
[2022-08-30] MEDS: spironolactone 25 MG tablet PO SCH (08:23)
[2022-08-30] MEDS: aspirin 81mg, enteric-coated 1 TAB TABLET.DR PO SCH (08:23)
[2022-08-30] MEDS: atorvastatin 20mg tablet PO SCH (08:23)
[2022-08-30] MEDS: amiodarone 200mg tablet PO SCH ×2 (08:24→20:31)
[2022-08-30] MEDS: apixaban 5mg tablet PO SCH ×2 (08:24→20:31)
[2022-08-30] MEDS ORDERED: SACU1TAB7 PO (12:44)
[2022-08-30] MEDS ORDERED: ATOR20TA66 PO (12:44)
[2022-08-30] MEDS ORDERED: SPIR25TA PO (12:44)
[2022-08-30] MEDS ORDERED: ASPI-1071 PO (12:44)
[2022-08-30] MEDS ORDERED: EMPA10TA PO (12:44)
[2022-08-30] MEDS ORDERED: APIX5TAB3 PO (12:44)
[2022-08-30] MEDS ORDERED: FURO20TA4 PO (12:44)
[2022-08-30] MEDS ORDERED: NALT50TA PO (14:12)
[2022-08-30] MEDS ORDERED: BUPR100T5 PO (14:12)
[2022-08-30] MEDS ORDERED: AMIO200T61 PO (14:16)
[2022-08-30] MEDS ORDERED: AMIO100T4 PO (14:16)
--- NOTE | 2022-08-30 15:08 | NUR ---
notified Page Accepted Message: 3013C- Rico- Pt has rash on bilateral upper thighs and abdomen. Pt reports rash occurs with lasix administration. Pt has itchiness. Suzie MENDEZ. Carmelo Krishnamurthy LVN Transaction number: [id number]
--- NOTE | 2022-08-30 16:21 | NUR ---
Paged. Page Accepted Message: 3012C- Sheila pryor vest is estimated to be here this evening or tomorrow Per Inna. Carmelo Krishnamurthy LVN Transaction number: [id number]
--- NOTE | 2022-08-30 16:23 | NUR ---
Paged. Page Accepted Message: 3012C- Rico- Pt having blurred vision possibly related to Lasix Side effects. Does not use Rx glasses. Fall precautions maintained. Carmelo Krishnamurthy LVN Transaction number: [id number]
--- NOTE | 2022-08-30 17:59 | NUR ---
DAMIEN Medication Administration: For this medication-pass time frame, all medication were reviewed, dispensed, administered and documented per hospital policy by DAMIEN DEVI.
--- NOTE | 2022-08-30 17:59 | NUR ---
STATE ARCHIVIST documentation: I have reviewed and agree with all interventions, assessments performed and documented by DAMIEN DEVI.
--- NOTE | 2022-08-30 18:30 | NUR ---
Problems reprioritized. Patient report given, questions answered & plan of care reviewed with Smita QUEZADA.
--- NOTE | 2022-08-30 18:39 | NUR ---
Patient in room PCU 3012. I have received report from Antonio QUEZADA and had the opportunity to ask questions and assume patient care.
--- NOTE | 2022-08-30 19:37 | NUR ---
Page Sent PAGER ID: [phone] MESSAGE: [phone] Prabha Bishop : Pt has rash all over lower chest, abdomen and upper thighs. Pt is unsure where it is from but adv it happened last hospital visit and is requesting Benadryl to help with itching.
[2022-08-30] MEDS ORDERED: diphenhydrAMINE 25mg capsule PO ONE (19:50)
[2022-08-31 02:00] VITALS: BP 114/77
--- NOTE | 2022-08-31 03:20 | NUR ---
pt HR went down into the high 50's low 60s. checked pt who advised he felt fine and vitals were stable w/ BP of 134/86.
--- NOTE | 2022-08-31 06:28 | NUR ---
Problems reprioritized. Patient report given, questions answered & plan of care reviewed with Antonio QUEZADA.
--- NOTE | 2022-08-31 06:31 | NUR ---
Patient in room PCU 3012. I have received report from Smita QUEZADA and had the opportunity to ask questions and assume patient care. Bedside report given. Pt arouesable to voice. Pt found left side lying. Rash noted to bilateral upper thighs, lower trunk, and new area to left arm. Hospitalist DIANA aware. Will endorse to primary MD. Denies itching at this time. No SOB. No distress Addendum: 08/31/22 at 0635 by Antonio Krishnamurthy LVN Amended: Links added.
[2022-08-31 07:00] VITALS: BP 139/88
[2022-08-31 07:08] LABS: BASOPHILS % (AUTO) 0.3 % (0-1); EOSINOPHILS # (AUTO) 0.6 X10'3 (0-0.9); EOSINOPHILS % (AUTO) 5.3 % (0-6); HEMATOCRIT 42.3 % (42.0-52.0); HEMOGLOBIN 13.8 g/dl (14.0-17.9); LYMPHOCYTES # (AUTO) 2.1 X10'3 (1.1-4.8); LYMPHOCYTES % (AUTO) 18.8 % (21-51); MEAN CORPUSCULAR HEMOGLOBIN 29.1 PG (27.0-31.0); MEAN CORPUSCULAR HGB CONC 32.5 g/dL (33.0-36.5); MEAN CORPUSCULAR VOLUME 89.5 FL (78-98); MEAN PLATELET VOLUME 9.7 FL (7.4-10.4); MONOCYTES # (AUTO) 1.4 X10'3 (0-0.9); MONOCYTES % (AUTO) 12.4 % (2-12); NEUTROPHILS % (AUTO) 63.2 % (42-75); PLATELET COUNT 377 X10'3 (140-440); RED BLOOD COUNT 4.73 X10'6 (4.70-6.10); RED CELL DISTRIBUTION WIDTH 14.9 % (11.5-14.5); WHITE BLOOD COUNT 11.1 X10'3 (4.5-11.0)
[2022-08-31 07:35] LABS: ALANINE AMINOTRANSFERASE 77 U/L (12-78); ALBUMIN 3.7 G/DL (3.4-5.0); ALBUMIN/GLOBULIN RATIO 0.9 (1.1-1.5); ALKALINE PHOSPHATASE 105 IU/L (46-116); ANION GAP 9 (8-16); ASPARTATE AMINO TRANSFERASE 34 U/L (10-37); BILIRUBIN,TOTAL 0.4 MG/DL (0.1-1.0); BLOOD UREA NITROGEN 46 MG/DL (7-18); BUN/CREATININE RATIO 24.3 (5.4-32.0); CALCIUM 9.2 MG/DL (8.5-10.1); CHLORIDE 100 MMOL/L (99-107); CREATININE 1.89 MG/DL (0.60-1.10); GLUCOSE 109 MG/DL (70-104); POTASSIUM 4.4 MMOL/L (3.5-5.1); SODIUM 136 MMOL/L (135-145); TOTAL CARBON DIOXIDE 27.2 MMOL/L (24-32); TOTAL PROTEIN 7.7 G/DL (6.4-8.2); eGFR 36 ML/MIN
[2022-08-31] MEDS: furosemide 40mg/4ml inj IV SCH ×2 (08:26→19:10)
[2022-08-31] MEDS: spironolactone 25 MG tablet PO SCH (09:27)
[2022-08-31] MEDS: atorvastatin 20mg tablet PO SCH (09:27)
[2022-08-31] MEDS: amiodarone 200mg tablet PO SCH ×2 (09:27→19:33)
[2022-08-31] MEDS: apixaban 5mg tablet PO SCH ×2 (09:27→19:33)
[2022-08-31] MEDS: aspirin 81mg, enteric-coated 1 TAB TABLET.DR PO SCH (09:27)
[2022-08-31 15:00] VITALS: BP 126/81
[2022-08-31 18:00] VITALS: BP 106/69
--- NOTE | 2022-08-31 18:20 | NUR ---
Patient in room PCU 3012. I have received report from Antonio QUEZADA and had the opportunity to ask questions and assume patient care.
--- NOTE | 2022-08-31 18:47 | NUR ---
Problems reprioritized. Patient report given, questions answered & plan of care reviewed with Smita QUEZADA.
[2022-09-01 02:00] VITALS: BP 110/80
--- NOTE | 2022-09-01 03:52 | NUR ---
I agree with CHEMICAL ANALYST assessment.
[2022-09-01 06:00] VITALS: BP 144/78
--- NOTE | 2022-09-01 06:10 | NUR ---
received report from matilde johnson
--- NOTE | 2022-09-01 06:11 | NUR ---
Problems reprioritized. Patient report given, questions answered & plan of care reviewed with Eryn LOVELACE.
[2022-09-01 06:33] LABS: ALANINE AMINOTRANSFERASE 73 U/L (12-78); ALBUMIN 3.7 G/DL (3.4-5.0); ALBUMIN/GLOBULIN RATIO 0.9 (1.1-1.5); ALKALINE PHOSPHATASE 100 IU/L (46-116); ANION GAP 9 (8-16); ASPARTATE AMINO TRANSFERASE 34 U/L (10-37); BILIRUBIN,TOTAL 0.4 MG/DL (0.1-1.0); BLOOD UREA NITROGEN 54 MG/DL (7-18); CALCIUM 9.4 MG/DL (8.5-10.1); CHLORIDE 100 MMOL/L (99-107); CREATININE 2.08 MG/DL (0.60-1.10); GLUCOSE 105 MG/DL (70-104); POTASSIUM 4.3 MMOL/L (3.5-5.1); SODIUM 137 MMOL/L (135-145); TOTAL CARBON DIOXIDE 27.7 MMOL/L (24-32); TOTAL PROTEIN 7.7 G/DL (6.4-8.2); eGFR 32 ML/MIN
[2022-09-01 06:42] LABS: BASOPHILS # (AUTO) 0.1 X10'3 (0-0.2); BASOPHILS % (AUTO) 1.2 % (0-1); EOSINOPHILS # (AUTO) 0.5 X10'3 (0-0.9); EOSINOPHILS % (AUTO) 4.7 % (0-6); HEMATOCRIT 42.6 % (42.0-52.0); HEMOGLOBIN 13.8 g/dl (14.0-17.9); LYMPHOCYTES # (AUTO) 2.2 X10'3 (1.1-4.8); LYMPHOCYTES % (AUTO) 19.5 % (21-51); MEAN CORPUSCULAR HGB CONC 32.5 g/dL (33.0-36.5); MEAN CORPUSCULAR VOLUME 89.4 FL (78-98); MEAN PLATELET VOLUME 9.4 FL (7.4-10.4); MONOCYTES # (AUTO) 1.5 X10'3 (0-0.9); MONOCYTES % (AUTO) 13.2 % (2-12); NEUTROPHILS # (AUTO) 6.8 X10'3 (1.8-7.7); NEUTROPHILS % (AUTO) 61.4 % (42-75); PLATELET COUNT 426 X10'3 (140-440); RED BLOOD COUNT 4.76 X10'6 (4.70-6.10); RED CELL DISTRIBUTION WIDTH 14.8 % (11.5-14.5); WHITE BLOOD COUNT 11.1 X10'3 (4.5-11.0)
[2022-09-01 07:38] VITALS: BP_SYST 144
[2022-09-01] MEDS: furosemide 40mg/4ml inj IV SCH (07:38)
[2022-09-01] MEDS: spironolactone 25 MG tablet PO SCH (07:38)
[2022-09-01] MEDS: amiodarone 200mg tablet PO SCH (07:38)
[2022-09-01] MEDS: aspirin 81mg, enteric-coated 1 TAB TABLET.DR PO SCH (07:39)
[2022-09-01] MEDS: atorvastatin 20mg tablet PO SCH (07:39)
[2022-09-01] MEDS: apixaban 5mg tablet PO SCH (07:39)
--- NOTE | 2022-09-01 08:08 | NUR ---
i attempted to call pt contact, wisam, in regards to pt discharge, wisam's phone went to voice mail and said that the 'mailbox is full'
--- NOTE | 2022-09-01 09:46 | NUR ---
pt d/c with instructions, understanding of instructions and with all belongings in wheelchair accompanied by sister and nursing staff to private vehicle to go home and f/u w/pcp
--- NOTE | 2022-09-01 09:50 | NUR ---
PT D/C [facility]
== END 2022-09-01 09:35 | disposition home or self-care (01) | DRG 194 ==
LOC: ER 10:14 → ED HOLD 16:21 → PCU 3S 21:55
PROVIDERS: ADMIT Internal Medicine; ATTEND Internal Medicine
DX: I13.0 Hypertensive heart and chronic kidney disease with heart failure and stage 1 through stage 4 chronic kidney disease, or unspecified chronic kidney disease (principal); I21.A1 Myocardial infarction type 2; I42.7 Cardiomyopathy due to drug and external agent; D63.1 Anemia in chronic kidney disease; I48.91 Unspecified atrial fibrillation; I50.23 Acute on chronic systolic (congestive) heart failure; F15.90 Other stimulant use, unspecified, uncomplicated; I48.92 Unspecified atrial flutter; N18.9 Chronic kidney disease, unspecified; Z79.01 Long term (current) use of anticoagulants; Z79.82 Long term (current) use of aspirin; Z79.84 Long term (current) use of oral hypoglycemic drugs; Z79.899 Other long term (current) drug therapy; Z91.14 Patient's other noncompliance with medication regimen; Z91.199 Patient's noncompliance with other medical treatment and regimen due to unspecified reason; Z72.0 Tobacco use
CPT/HCPCS: 36415; 71045; 80053; 80061; 80305; 80320; 83880; 84484; 85025; 87081; 93005; 96374; 96375; 97161; 99285; A4615; G0378; J0282; J1940; Q0163

== ENCOUNTER 2023-08-02 16:37 | Emergency (ER) | payer MEDICAID ==
[~2023-08-02] VITALS: Ht 203.2 cm; Wt 113.6 kg
[~2023-08-02 16:37] MED LIST changes: +AMI200T PO; +AMIO100T4 PO; -AMIO200T67 PO; +BUPR100T5 PO; +EMPA10TA PO; +FURO20TA4 PO; -LISI10TA27 PO; +NALT50TA PO; +SACU1TAB7 PO
[2023-08-02] MEDS ORDERED: iohexol 350MG/ML 100ml bottle IV ONE (16:50)
[2023-08-02] MEDS: diltiazem 5mg/ml 5ml inj. IV ONE ×2 (17:17→17:22)
[2023-08-02 17:19] LABS: BASOPHILS # (AUTO) 0.2 X10'3 (0-0.2); BASOPHILS % (AUTO) 1.4 % (0-1); EOSINOPHILS # (AUTO) 0.3 X10'3 (0-0.9); EOSINOPHILS % (AUTO) 3.1 % (0-6); HEMATOCRIT 42.8 % (42.0-52.0); HEMOGLOBIN 13.8 g/dl (14.0-17.9); LYMPHOCYTES # (AUTO) 1.8 X10'3 (1.1-4.8); LYMPHOCYTES % (AUTO) 16.5 % (21-51); MEAN CORPUSCULAR HEMOGLOBIN 29.6 PG (27.0-31.0); MEAN CORPUSCULAR HGB CONC 32.3 g/dL (33.0-36.5); MEAN CORPUSCULAR VOLUME 91.8 FL (78-98); MONOCYTES # (AUTO) 1.3 X10'3 (0-0.9); NEUTROPHILS # (AUTO) 7.3 X10'3 (1.8-7.7); PLATELET COUNT 339 X10'3 (140-440); RED BLOOD COUNT 4.66 X10'6 (4.70-6.10); RED CELL DISTRIBUTION WIDTH 15.1 % (11.5-14.5); WHITE BLOOD COUNT 10.9 X10'3 (4.5-11.0)
[2023-08-02 17:29] LABS: APTT 29 SECONDS (22-32); INR 1.2 INR; PROTHROMBIN TIME 12.4 SECONDS (9.0-12.0)
[2023-08-02 17:31] LABS: ALANINE AMINOTRANSFERASE 44 U/L (12-78); ALBUMIN 3.3 G/DL (3.4-5.0); ALBUMIN/GLOBULIN RATIO 0.8 (1.1-1.5); ALKALINE PHOSPHATASE 77 IU/L (46-116); ANION GAP 13 (8-16); ASPARTATE AMINO TRANSFERASE 23 U/L (10-37); BILIRUBIN,TOTAL 0.9 MG/DL (0.1-1.0); BLOOD UREA NITROGEN 20 MG/DL (7-18); BUN/CREATININE RATIO 12.7 (10.0-20.0); CALCIUM 8.7 MG/DL (8.5-10.1); CHLORIDE 106 MMOL/L (99-107); CREATININE 1.57 MG/DL (0.60-1.10); GLUCOSE 108 MG/DL (70-104); SODIUM 140 MMOL/L (135-145); TOTAL CARBON DIOXIDE 20.9 MMOL/L (24-32); TOTAL PROTEIN 7.3 G/DL (6.4-8.2); eCRCL 63 ML/MIN; eGFR 44 ML/MIN
[2023-08-02] MEDS ORDERED: tenecteplase 50mg kit IV ONE (18:00)
[2023-08-02] MEDS ORDERED: ondansetron/PF 4mg/2ml inj IV ONE (18:15)
[2023-08-02] MEDS ORDERED: aspirin 81mg tab.chew PO ONE (18:15)
[2023-08-02] MEDS ORDERED: morphine 4 MG/ML inj SYRINge IV ONE (18:15)
[2023-08-02] MEDS ORDERED: tranexamic acid inj. 1,000 MG in normal saline 100ml IV soln 90 ML IV ONE (19:00)
[2023-08-02 19:35] VITALS: BP 155/102; PULSE 107; RESP 18; O2SAT 94
[2023-08-02 20:14] LABS: FIBRINOGEN 410 MG/DL (177-424)
[2023-08-02 20:28] VITALS: TEMP 97.6
== END 2023-08-02 19:50 | disposition short-term general hospital (02) ==
LOC: ER 16:37
DX: H57.89 Other specified disorders of eye and adnexa (principal); I62.9 Nontraumatic intracranial hemorrhage, unspecified; H53.47 Heteronymous bilateral field defects; H53.9 Unspecified visual disturbance; I63.9 Cerebral infarction, unspecified
CPT/HCPCS: 36415; 70450; 70496; 70498; 71045; 80053; 84484; 85025; 85384; 85610; 85730; 86885; 93005; 96365; 96375; 99291; J2270; J2405; J3101; J3490; Q9967; A4615

== ENCOUNTER 2023-08-09 12:43 | Inpatient (IN) | payer MEDICARE, MEDICAID ==
[~2023-08-09] VITALS: Ht 203.2 cm; Wt 118.2 kg
[2023-08-09] MEDS ORDERED: ipratropium/albuterol 3ml nebule NEB ONE (14:20)
[2023-08-09 14:29] VITALS: PULSE 81; RESP 18; O2SAT 99
[2023-08-09 14:32] LABS: BASOPHILS # (AUTO) 0.2 X10'3 (0-0.2); BASOPHILS % (AUTO) 1.5 % (0-1); EOSINOPHILS # (AUTO) 0.6 X10'3 (0-0.9); EOSINOPHILS % (AUTO) 5.7 % (0-6); HEMATOCRIT 40.7 % (42.0-52.0); LYMPHOCYTES # (AUTO) 1.5 X10'3 (1.1-4.8); LYMPHOCYTES % (AUTO) 14.8 % (21-51); MEAN CORPUSCULAR HEMOGLOBIN 29.7 PG (27.0-31.0); MEAN CORPUSCULAR HGB CONC 31.9 g/dL (33.0-36.5); MEAN PLATELET VOLUME 10.1 FL (7.4-10.4); MONOCYTES # (AUTO) 1.1 X10'3 (0-0.9); MONOCYTES % (AUTO) 10.4 % (2-12); NEUTROPHILS # (AUTO) 7.1 X10'3 (1.8-7.7); NEUTROPHILS % (AUTO) 67.6 % (42-75); PLATELET COUNT 301 X10'3 (140-440); RED BLOOD COUNT 4.37 X10'6 (4.70-6.10); RED CELL DISTRIBUTION WIDTH 15.3 % (11.5-14.5); WHITE BLOOD COUNT 10.5 X10'3 (4.5-11.0)
[2023-08-09 14:35] VITALS: PULSE 86; RESP 18; O2SAT 97
[2023-08-09 14:47] LABS: ALANINE AMINOTRANSFERASE 52 U/L (12-78); ALBUMIN 3.2 G/DL (3.4-5.0); ALBUMIN/GLOBULIN RATIO 0.8 (1.1-1.5); ALKALINE PHOSPHATASE 77 IU/L (46-116); ANION GAP 7 (8-16); ASPARTATE AMINO TRANSFERASE 31 U/L (10-37); BILIRUBIN,TOTAL 0.5 MG/DL (0.1-1.0); BLOOD UREA NITROGEN 26 MG/DL (7-18); CALCIUM 8.5 MG/DL (8.5-10.1); CHLORIDE 108 MMOL/L (99-107); CREATININE 1.86 MG/DL (0.60-1.10); GLUCOSE 106 MG/DL (70-104); POTASSIUM 4.3 MMOL/L (3.5-5.1); SODIUM 142 MMOL/L (135-145); TOTAL PROTEIN 7.1 G/DL (6.4-8.2); eCRCL 53 ML/MIN; eGFR 37 ML/MIN
[2023-08-09 14:58] LABS: PRO BRAIN NATRIURETIC PEPTIDE 3758 PG/ML (0-125)
[2023-08-09] MEDS ORDERED: mag hydrox/Alum hydrox/simeth 30ml oral suspension PO PRN (15:20)
[2023-08-09] MEDS ORDERED: ondansetron 4mg rapidly disintigrating tab PO PRN (15:20)
[2023-08-09] MEDS ORDERED: magnesium Cl slow-release 64mg tablet PO PRN (15:20)
[2023-08-09] MEDS ORDERED: acetaminophen 325mg tablet PO PRN ×2 (15:20)
[2023-08-09] MEDS ORDERED: magnesium 2GM in 50ml NS 50 ML IV PRN (15:20)
[2023-08-09] MEDS ORDERED: ondansetron/PF 4mg/2ml inj IV PRN (15:20)
[2023-08-09] MEDS ORDERED: potassium Cl 40MEQ/1/2NS 520ml 520 ML IV PRN (15:20)
[2023-08-09] MEDS ORDERED: magnesium 4gm in 100ml NS 100 ML IV PRN (15:20)
[2023-08-09] MEDS ORDERED: bisacodyl 10mg suppository rectal RC PRN (15:20)
[2023-08-09] MEDS ORDERED: potassium Cl 20 mEq SR tablet PO PRN ×2 (15:20)
[2023-08-09] MEDS ORDERED: magnesium hydroxide 30ml (MOM) UD suspension PO PRN (15:20)
[2023-08-09] MEDS ORDERED: acetaminophen 650mg rectal suppository RC PRN (15:20)
[2023-08-09 15:48] LABS: CHOL/HDL RATIO 3.1 (0.00-4.99); CHOLESTEROL 122 MG/DL (0-200); HDL CHOLESTEROL 39 MG/DL (35-60); LDL CHOLESTEROL 68 MG/DL (50-100); TRIGLYCERIDES 55 MG/DL (20-135)
[2023-08-09 15:52] LABS: HEMOGLOBIN A1C 5.8 % (4.5-6.2)
[2023-08-09] MEDS ORDERED: furosemide 20 MG/2 ML vial IV ONE (15:55)
[2023-08-09 17:50] LABS: URINE AMPHETAMINE SCREEN NEGATIVE (Neg); URINE BARBITUATE SCREEN NEGATIVE (Neg); URINE BENZODIAZEPINES SCREEN NEGATIVE (Neg); URINE CANNABINOID SCREEN NEGATIVE (Neg); URINE COCAINE SCREEN NEGATIVE (Neg); URINE METHADONE SCREEN NEGATIVE (Neg); URINE OPIATE SCREEN NEGATIVE (Neg); URINE PHENCYCLIDINE SCREEN NEGATIVE (Neg)
[2023-08-09] MEDS: K and/or MAG REPLACEMENT MC SCH (20:00)
[2023-08-09] MEDS ORDERED: heparin, porcine 5000 units/ml vial SQ SCH (20:00)
[2023-08-09] MEDS ORDERED: temazepam 15mg capsule PO PRN (21:00)
[2023-08-09] MEDS: docusate sod 100mg capsule PO SCH (21:18)
[2023-08-09] MEDS: furosemide 40mg/4ml inj IV SCH (21:20)
[2023-08-09 22:00] VITALS: BP 158/102; PULSE 101; RESP 20; TEMP 97.9; O2SAT 97
[2023-08-09] MEDS ORDERED: AMI200T PO ×2 (22:41→22:48)
[2023-08-09] MEDS ORDERED: CARV-50 PO (22:41)
[2023-08-09] MEDS ORDERED: OMEP40CA21 PO (22:41)
[2023-08-09] MEDS ORDERED: AMIO100T4 PO (22:48)
[2023-08-09] MEDS ORDERED: APIX5TAB3 PO (22:54)
[2023-08-10] VITALS (7 sets, daily range): BP systolic 113–144; BP diastolic 60–104; PULSE 66–110; RESP 14–22; TEMP 97.1–98.6; O2SAT 94–98
[2023-08-10 05:51] LABS: BASOPHILS # (AUTO) 0.1 X10'3 (0-0.2); BASOPHILS % (AUTO) 1.6 % (0-1); EOSINOPHILS # (AUTO) 0.7 X10'3 (0-0.9); EOSINOPHILS % (AUTO) 7.3 % (0-6); HEMATOCRIT 40.3 % (42.0-52.0); HEMOGLOBIN 12.9 g/dl (14.0-17.9); LYMPHOCYTES % (AUTO) 22.6 % (21-51); MEAN CORPUSCULAR HEMOGLOBIN 29.4 PG (27.0-31.0); MEAN PLATELET VOLUME 9.8 FL (7.4-10.4); MONOCYTES # (AUTO) 1.2 X10'3 (0-0.9); MONOCYTES % (AUTO) 13.2 % (2-12); NEUTROPHILS % (AUTO) 55.3 % (42-75); PLATELET COUNT 347 X10'3 (140-440); RED BLOOD COUNT 4.38 X10'6 (4.70-6.10); RED CELL DISTRIBUTION WIDTH 15.2 % (11.5-14.5)
[2023-08-10 06:26] LABS: ALANINE AMINOTRANSFERASE 50 U/L (12-78); ALBUMIN 3.4 G/DL (3.4-5.0); ALBUMIN/GLOBULIN RATIO 0.9 (1.1-1.5); ALKALINE PHOSPHATASE 71 IU/L (46-116); ANION GAP 10 (8-16); ASPARTATE AMINO TRANSFERASE 26 U/L (10-37); BILIRUBIN,TOTAL 0.6 MG/DL (0.1-1.0); BLOOD UREA NITROGEN 30 MG/DL (7-18); BUN/CREATININE RATIO 16.1 (10.0-20.0); CALCIUM 8.7 MG/DL (8.5-10.1); CHLORIDE 105 MMOL/L (99-107); CREATININE 1.86 MG/DL (0.60-1.10); GLUCOSE 94 MG/DL (70-104); MAGNESIUM 2.1 MG/DL (1.5-2.4); POTASSIUM 4.1 MMOL/L (3.5-5.1); SODIUM 142 MMOL/L (135-145); TOTAL CARBON DIOXIDE 27.2 MMOL/L (24-32); TOTAL PROTEIN 7.1 G/DL (6.4-8.2); eCRCL 53 ML/MIN; eGFR 37 ML/MIN
[2023-08-10] MEDS: K and/or MAG REPLACEMENT MC SCH ×2 (08:00→20:00)
[2023-08-10] MEDS: docusate sod 100mg capsule PO SCH ×2 (08:06→19:43)
[2023-08-10] MEDS: amiodarone 200mg tablet PO SCH (09:46)
[2023-08-10] MEDS: spironolactone 25 MG tablet PO SCH (09:49)
[2023-08-10] MEDS ORDERED: FLU VACC QS2023-24(6MOS UP)/PF 60 MCG/0.5 ML SYRINGE IM ONE (10:00)
[2023-08-10] MEDS ORDERED: pneumococcal 23-VAL P-sac vacc 25 mcg/0.5ml vial IMVAC ONE (10:00)
[2023-08-10 10:37] LABS: FREE T4 (FREE THYROXINE) 1.27 NG/DL (0.73-1.40); THYROID STIMULATING HORMONE 4.8 ulU/ml (0.34-4.50)
[2023-08-10] MEDS: furosemide 40mg/4ml inj IV SCH ×2 (11:55→20:25)
[2023-08-10] MEDS: carVEDilol 12.5mg tablet PO SCH (19:43)
[2023-08-11 02:00] VITALS: PULSE 87; RESP 22; TEMP 98.6; O2SAT 97
[2023-08-11 07:00] VITALS: BP 152/103; PULSE 60; RESP 17; TEMP 98.2; O2SAT 95
[2023-08-11] MEDS ORDERED: pantoprazole 40mg Tablet.DR PO SCH (07:30)
[2023-08-11 07:45] LABS: BASOPHILS # (AUTO) 0.2 X10'3 (0-0.2); BASOPHILS % (AUTO) 1.2 % (0-1); EOSINOPHILS # (AUTO) 0.9 X10'3 (0-0.9); HEMATOCRIT 43.6 % (42.0-52.0); HEMOGLOBIN 13.8 g/dl (14.0-17.9); LYMPHOCYTES # (AUTO) 1.9 X10'3 (1.1-4.8); LYMPHOCYTES % (AUTO) 14.5 % (21-51); MEAN CORPUSCULAR HEMOGLOBIN 29.4 PG (27.0-31.0); MEAN CORPUSCULAR HGB CONC 31.7 g/dL (33.0-36.5); MEAN CORPUSCULAR VOLUME 92.8 FL (78-98); MONOCYTES # (AUTO) 1.6 X10'3 (0-0.9); MONOCYTES % (AUTO) 12.8 % (2-12); NEUTROPHILS # (AUTO) 8.2 X10'3 (1.8-7.7); NEUTROPHILS % (AUTO) 64.5 % (42-75); PLATELET COUNT 425 X10'3 (140-440); RED BLOOD COUNT 4.69 X10'6 (4.70-6.10); WHITE BLOOD COUNT 12.8 X10'3 (4.5-11.0)
[2023-08-11] MEDS ORDERED: atorvastatin 20mg tablet PO SCH (08:00)
[2023-08-11] MEDS: K and/or MAG REPLACEMENT MC SCH (08:00)
[2023-08-11] MEDS ORDERED: EMPAGLIFLOZIN 10 MG TABLET PO SCH (08:00)
[2023-08-11 08:16] LABS: ALANINE AMINOTRANSFERASE 43 U/L (12-78); ALBUMIN 3.2 G/DL (3.4-5.0); ALBUMIN/GLOBULIN RATIO 0.8 (1.1-1.5); ALKALINE PHOSPHATASE 70 IU/L (46-116); ANION GAP 9 (8-16); ASPARTATE AMINO TRANSFERASE 24 U/L (10-37); BILIRUBIN,TOTAL 0.6 MG/DL (0.1-1.0); BLOOD UREA NITROGEN 35 MG/DL (7-18); BUN/CREATININE RATIO 17.2 (10.0-20.0); CALCIUM 8.7 MG/DL (8.5-10.1); CHLORIDE 103 MMOL/L (99-107); CREATININE 2.03 MG/DL (0.60-1.10); GLUCOSE 113 MG/DL (70-104); MAGNESIUM 2.1 MG/DL (1.5-2.4); POTASSIUM 3.9 MMOL/L (3.5-5.1); SODIUM 140 MMOL/L (135-145); TOTAL CARBON DIOXIDE 27.7 MMOL/L (24-32); eCRCL 49 ML/MIN; eGFR 33 ML/MIN
[2023-08-11] MEDS: carVEDilol 12.5mg tablet PO SCH (08:27)
[2023-08-11] MEDS: docusate sod 100mg capsule PO SCH (08:27)
[2023-08-11] MEDS: amiodarone 200mg tablet PO SCH (08:27)
[2023-08-11] MEDS: spironolactone 25 MG tablet PO SCH (08:28)
[2023-08-11 11:00] VITALS: BP 103/52; PULSE 74; RESP 17; TEMP 98.7; O2SAT 92
[2023-08-11] MEDS: furosemide 40mg/4ml inj IV SCH (11:33)
== END 2023-08-11 14:15 | disposition home or self-care (01) | DRG 280 ==
LOC: ER 12:44 → ED HOLD 15:22 → EDBEDREQ 17:55 → PCU 3S 19:22
PROVIDERS: ADMIT Family Medicine; ATTEND Family Medicine
DX: I13.0 Hypertensive heart and chronic kidney disease with heart failure and stage 1 through stage 4 chronic kidney disease, or unspecified chronic kidney disease (principal); I21.A1 Myocardial infarction type 2; I50.43 Acute on chronic combined systolic (congestive) and diastolic (congestive) heart failure; R18.8 Other ascites; Z59.00 Homelessness unspecified; N18.9 Chronic kidney disease, unspecified; I42.7 Cardiomyopathy due to drug and external agent; I48.91 Unspecified atrial fibrillation; I25.2 Old myocardial infarction; Z86.73 Personal history of transient ischemic attack (TIA), and cerebral infarction without residual deficits; Z87.891 Personal history of nicotine dependence; Z81.1 Family history of alcohol abuse and dependence
CPT/HCPCS: 36415; 70450; 71045; 80053; 80061; 80305; 83036; 83735; 83880; 84145; 84439; 84443; 84484; 85025; 87081; 87502; 87503; 90686; 90732; 93306; 94640; 94760; 99285; G0378; J1940